=== PATIENT | male | born 1990 | race African-American/Black ===

== ENCOUNTER 2021-08-01 22:05 | Emergency (ER) | payer MEDICARE, MEDICAID, SELFPAY ==
[2021-08-01 22:16] VITALS: BP 131/79; PULSE 105; RESP 20; TEMP 39.1; O2SAT 97; BMI 40.6
[2021-08-01] MEDS: Acetaminophen 325 MG TABLET 650 MG PO (22:28)
[2021-08-01 23:00] LABS: COVID-19 Test Positive (Negative)
--- NOTE | 2021-08-01 23:22 | ED_ITS ---
HPI - URI/Sore Throat General Chief Complaint: Upper Respiratory Symptoms Stated Complaint: Covid symptoms Time Seen by Provider: 08/01/21 22:34 Source: patient Mode of arrival: ambulatory Limitations: no limitations History of Present Illness HPI Narrative: 31-year-old male presents with 5 days of intermittent fevers, fatigue, body aches, mild headache, 1 episode of vomiting. In addition patient has had a mild dry cough. No sore throat, no runny nose, no diarrhea No shortness of breath, no chest pain. MD elicited complaint: fever, cough and nasal congestion Onset (ago): day(s) (5) Consistency: constant Severity: moderate Description of mucous: clear Able to tolerate fluids by mouth: Yes Relieving factors: OTC cold medicine Associated symptoms: fever, chills, myalgias, headache, nasal congestion and c ough Related Data Allergies Allergy/AdvReac Type Severity Reaction Status Date / Time No Known Allergies Allergy Verified 08/01/21 22:18 [No Known Allergies*] Review of Systems Constitutional: Constitutional: Reports body ache(s), Reports chills, Reports fatigue, Reports fever(s), Reports headache(s), Reports malaise and Reports weakness Eyes: Eyes: Denies diplopia ENT: Denies vertigo, Denies dizziness, Denies otalgia, Reports headache(s), Reports nasal congestion, Reports nasal discharge, Denies post nasal drip, Denies sinus pain and Denies sore throat Cardiovascular: Cardiovascular: Denies chest pain, Denies syncope, Denies lightheadedness, Denies Loss of Consciousness, Denies palpitations and Denies dyspnea Respiratory: Respiratory: Denies chest congestion, Reports cough and Denies dyspnea Gastrointestinal: Gastrointestinal: Denies abdominal pain, Denies hematochezia, Denies constipation, Denies diarrhea and Reports vomiting Musculoskeletal: Musculoskeletal: Reports myalgias Integumentary/Breasts: Skin/Breast: Denies rash Neurologic: Denies confusion, Denies vertigo, Denies dizziness, Denies syncope, Reports headache(s) and Reports weakness Psychiatric: Psychiatric: Denies anxiety, Denies confusion and Denies depression Endocrine: Endocrine: Reports fatigue and Denies palpitations PMFSH Past Medical History Medical History No known health problems Social History Social History Advance Directives: No Advance Directives Information Provided: No Physical Exam Vital Signs: Vital Signs: Last Vital Signs Temp 102.4 F H 08/01/21 22:16 Pulse 105 H 08/01/21 22:16 Resp 20 08/01/21 22:16 BP 131/79 08/01/21 22:16 Pulse Ox 97 08/01/21 22:16 Body Mass Index 40.6 Const: General: no acute distress, alert, awake and ill appearing acutely; No confusion Nutritional Appearance: well nourished Orientation/consciousness: patient oriented x3 and No confusion Limitations: no limitations HENMT: Head: Yes normal to inspection, Yes normocephalic and Yes atraumatic Ears: hearing grossly normal bilaterally, external ears normal, TM's normal bilaterally and Abnormal EAC present (cerumen impaction on right) General nose exam: Normal external nose present Face and sinus: Yes normal facial exam and Yes sinuses nontender Mouth: Normal oral and palatal mucosa present Throat: Yes posterior oropharynx normal and Yes postnasal drainage Eyes: Conjunctivae: conjunctivae normal Pupils: Equal, round and reactive pupils present EOM: EOMs intact bilaterally Neck: Neck: Yes full ROM, Yes no lymphadenopathy and Yes supple Resp: Effort & Inspection: normal respiratory effort and able to speak in complete sentences Auscultation: clear to auscultation bilaterally, no crackles, no rales, no rhonchi and no wheezes Cardio: Rate: regular rate Rhythm: regular rhythm Heart sounds: S1 normal heart sound present and S2 normal heart sound present GI: Inspection: Yes normal to inspection Palpation (GI): Soft to palpation, nontender, no guarding and not rigid Percussion: Yes normal to percussion Auscultation: normal bowel sounds Skin: General skin exam: no rashes or lesions noted Neuro: General: patient oriented x3 and No confusion Cranial nerves: Yes Equal, round and reactive pupils present Extrem: General: Yes normal to inspection and Yes full ROM Psych: Appearance: grossly normal Affect: normal affect Attitude: cooperative Thought process: Normal thought process present Course Course Course Narrative: 31-year-old male with COVID symptoms and has a a positive COVID test today in the ED. Counseled patient to rest, take Tylenol, drink plenty of fluids, and quarantine at home. Return precautions of shortness of breath, chest pain, worsening symptoms. MDM - URI/Sore Throat Lab Data Labs: Lab Results 08/01/21 Range/Units 22:24 COVID-19 ([facility]) Positive A (Negative) COVID-19 Clin Com See Note Discharge Plan Discharge Clinical Impression: COVID Patient Disposition: Home, Self-Care Instructions: COVID-19 (Coronavirus Disease 2019) (ED) Additional Instructions: You tested COVID positive today. Please drink 2-3 L of water a day, please wear mask in the house and isolate yourself in your room and wash your hands. Use 1 bathroom dedicated only to herself and take all your meals in your room. Please stay out of work until your symptom free for at least 1 week or you have tested COVID negative. You may take 1000 mg of Tylenol every 8 hours not to exceed 3000 mg in 24 hours. I recommend you do this for the next 3-4 days. If you have shortness of breath, chest pain, or any other new or concerning symptoms, please return to the emergency room. Stand Alone Forms: Work/School Release
[2021-08-02 00:55] VITALS: TEMP 37.2
== END 2021-08-02 00:30 | disposition home or self-care (01) ==
PROVIDERS: Emergency Provider Internal Medicine
DX: U07.1 COVID-19 (principal)
CPT/HCPCS: 36415; 87635; 99283

== ENCOUNTER 2021-08-09 15:43 | Outpatient (REF) | payer MEDICARE, MEDICAID, SELFPAY | END 2021-08-09 15:44 | disposition home or self-care (01) | LOC: HO.LAB 15:43 | PROVIDERS: Visit Provider Internal Medicine | DX: Z20.822 Contact with and (suspected) exposure to COVID-19 (principal) | CPT/HCPCS: C9803; U0003; U0005 ==